=== PATIENT | male | born 1960 | race African-American/Black ===

== ENCOUNTER 2021-07-16 14:45 | Emergency (ER) | payer OTHER, MEDICARE ==
[~2021-07-16] VITALS: Ht 182.9 cm; Wt 81.0 kg
[2021-07-16 15:46] LABS: BASOPHILS % 0.5 % (0.0-2.0); EOSINOPHILS % 0.1 % (0.0-5.0); HEMATOCRIT. 43.1 % (42.0-52.0); HEMOGLOBIN. 14.4 g/dL (14.0-18.0); LYMPHOCYTES % 23.5 % (20.0-50.0); MEAN CORPUSCULAR HEMOGLOBIN 26.1 pg (28.0-32.0); MEAN CORPUSCULAR VOLUME 78.2 fL (80.0-94.0); MEAN PLATELET VOLUME 8.5 fl (7.4-10.4); MONOCYTES % 9.1 % (2.0-8.0); NEUTROPHILS % 66.8 % (40.0-76.0); PLATELET 331 x1000/uL (130-400); RED BLOOD CELL COUNT 5.52 mill/uL (4.7-6.1); RED CELL DISTRIBUTION WIDTH 15.7 % (11.6-14.6)
[2021-07-16 15:47] LABS: CHLORIDE 107 mEq/L (98-107)
[2021-07-16 18:20] VITALS: BP 134/91
== END 2021-07-16 20:13 | disposition home or self-care (01) ==
LOC: ER 15:55
DX: R00.2 Palpitations (principal); I48.91 Unspecified atrial fibrillation; I10 Essential (primary) hypertension; E11.9 Type 2 diabetes mellitus without complications; Z79.01 Long term (current) use of anticoagulants; Z79.899 Other long term (current) drug therapy
CPT/HCPCS: 36415; 71045; 80053; 83880; 84484; 85025; 93005; 99285

== ENCOUNTER 2021-07-21 23:59 | Emergency (ER) | payer MEDICARE, OTHER ==
[~2021-07-21] VITALS: Ht 177.8 cm; Wt 70.0 kg
[2021-07-22] MEDS ORDERED: IBUPROFEN 600MG TABLET PO STA (00:03)
[2021-07-22 00:20] VITALS: BP 124/92
== END 2021-07-22 00:57 | disposition left against medical advice (07) ==
LOC: ER 23:59
DX: R07.89 Other chest pain (principal); E11.9 Type 2 diabetes mellitus without complications; I10 Essential (primary) hypertension; I48.91 Unspecified atrial fibrillation
CPT/HCPCS: 93005; 99283

== ENCOUNTER 2021-08-06 10:05 | Inpatient (IN) | payer OTHER, MEDICARE ==
[~2021-08-06] VITALS: Ht 193 cm; Wt 102.2 kg
[2021-08-06 11:37] LABS: BASOPHILS % 0.6 % (0.0-2.0); EOSINOPHILS % 0.9 % (0.0-5.0); HEMATOCRIT. 30.7 % (42.0-52.0); HEMOGLOBIN. 10.3 g/dL (14.0-18.0); MEAN CORPUSCULAR HEMOGLOBIN 26.1 pg (28.0-32.0); MEAN CORPUSCULAR VOLUME 78.1 fL (80.0-94.0); MONOCYTES % 10.9 % (2.0-8.0); NEUTROPHILS % 69.6 % (40.0-76.0); PLATELET 404 x1000/uL (130-400); RED BLOOD CELL COUNT 3.93 mill/uL (4.7-6.1); RED CELL DISTRIBUTION WIDTH 16.4 % (11.6-14.6)
[2021-08-06 11:49] LABS: CHLORIDE 105 mEq/L (98-107)
[2021-08-06 12:01] LABS: ETHANOL BLOOD < 10 mg/dL
[2021-08-06 12:07] LABS: PROTHROMBIN TIME 10.5 sec (9.6-11.0)
[2021-08-06 12:18] LABS: CLARITY URINE CLEAR (CLEAR); COLOR URINE YELLOW (YELLOW); KETONES URINE NEGATIVE (NEGATIVE); LEUKOCYTE ESTERASE URINE TRACE (NEGATIVE); NITRITE URINE NEGATIVE (NEGATIVE); OCCULT BLOOD URINE NEGATIVE (NEGATIVE); PROTEIN URINE NEGATIVE (NEGATIVE); SPECIFIC GRAVITY URINE 1.013 (1.005-1.030); UROBILINOGEN URINE 0.2 E.U./dL (0.2-1.0)
[2021-08-06 12:29] LABS: *AMPHETAMINES SCREEN URINE NEGATIVE (NEGATIVE); *BARBITURATES SCREEN URINE NEGATIVE (NEGATIVE); *BENZODIAZEPINES SCREEN URINE NEGATIVE (NEGATIVE); *COCAINE SCREEN URINE NEGATIVE (NEGATIVE); CANNABINOID URINE SCREEN NEGATIVE (NEGATIVE); METHADONE URINE SCREEN NEGATIVE (NEGATIVE); OPIATES URINE SCREEN NEGATIVE (NEGATIVE); PHENCYCLIDINE URINE SCREEN NEGATIVE (NEGATIVE)
[2021-08-06] MEDS ORDERED: ONDANSETRON HCL 4MG/2ML INJ IV PRN (16:00)
[2021-08-06] MEDS ORDERED: ACETAMINOPHEN 325MG TABLET PO PRN (16:00)
[2021-08-06] MEDS ORDERED: MAGNESIUM/ALUMINUM HYDROXIDE/SIMETHICONE 30ML UDC PO PRN (16:00)
[2021-08-06] MEDS ORDERED: CLONIDINE 0.1MG TABLET PO PRN (16:00)
[2021-08-06] MEDS ORDERED: IPRATROPIUM/ALBUTEROL 0.5-3(2.5)MG/3ML NEB NEB PRN (16:00)
[2021-08-06] MEDS ORDERED: DOCUSATE SODIUM 100MG CAPSULE PO PRN (16:00)
[2021-08-06] MEDS ORDERED: GUAIFENESIN 200MG/10ML SUGAR FREE UDC PO PRN (16:00)
[2021-08-06] MEDS: DEXT 5%/LACTATED RINGERS 1,000 ML IV SCH (16:10)
[2021-08-06 16:11] LABS: TOTAL IRON BINDING CAPACITY 175 ug/dL (250-450)
[2021-08-06] MEDS ORDERED: PANTOPRAZOLE 80 MG in SODIUM CHLORIDE 0.9% 100 ML IV SCH ×4 (17:00)
[2021-08-06] MEDS: ACETAMINOPHEN 325MG TABLET PO PRN ×2 (17:38→22:28)
[2021-08-06 17:41] LABS: FOLIC ACID (FOLATE) SERUM 9.6 ng/mL (>5.38)
[2021-08-06 19:05] VITALS: BP 145/90
[2021-08-06 20:00] VITALS: BP 112/67
[2021-08-06] MEDS: PANTOPRAZOLE SODIUM 40 MG/VIAL IV SCH (22:27)
[2021-08-06 22:58] VITALS: BP 112/67
[2021-08-06] MEDS: ZOLPIDEM TARTRATE 5MG TABLET PO PRN (23:23)
[2021-08-07] VITALS: BP 131/71
[2021-08-07] MEDS ORDERED: LOPHC2 PO (01:00)
[2021-08-07] MEDS: ACETAMINOPHEN 325MG TABLET PO PRN ×2 (03:52→21:10)
[2021-08-07 04:00] VITALS: BP 133/83
[2021-08-07 04:00] LABS: HEMATOCRIT 30.3 % (42.0-52.0); HEMOGLOBIN 10.1 g/dL (14.0-18.0)
[2021-08-07] MEDS: DEXT 5%/LACTATED RINGERS 1,000 ML IV SCH (06:00)
[2021-08-07 07:33] LABS: HEMOGLOBIN. 10.2 g/dL (14.0-18.0); MEAN CORPUSCULAR HEMOGLOBIN 26.2 pg (28.0-32.0); MEAN CORPUSCULAR VOLUME 77.1 fL (80.0-94.0); MEAN PLATELET VOLUME 6.8 fl (7.4-10.4); PLATELET 361 x1000/uL (130-400); RED CELL DISTRIBUTION WIDTH 16.8 % (11.6-14.6)
[2021-08-07 07:55] LABS: CHLORIDE 103 mEq/L (98-107)
[2021-08-07 08:00] VITALS: BP 125/80
[2021-08-07] MEDS: PANTOPRAZOLE SODIUM 40 MG/VIAL IV SCH ×2 (10:00→21:08)
[2021-08-07 12:00] VITALS: BP 132/84
[2021-08-07 12:14] LABS: HEMATOCRIT 30.9 % (42.0-52.0); HEMOGLOBIN 10.3 g/dL (14.0-18.0)
[2021-08-07 13:49] LABS: PLATELET ESTIMATE NORMAL
[2021-08-07 16:00] VITALS: BP 128/82
[2021-08-07 19:12] LABS: HEMATOCRIT 32.3 % (42.0-52.0); HEMOGLOBIN 10.7 g/dL (14.0-18.0)
[2021-08-07 20:00] VITALS: BP 137/75
[2021-08-07] MEDS: ZOLPIDEM TARTRATE 5MG TABLET PO PRN (21:08)
[2021-08-08] VITALS: BP 135/72
[2021-08-08 01:30] LABS: HEMATOCRIT 30.8 % (42.0-52.0); HEMOGLOBIN 10.4 g/dL (14.0-18.0)
[2021-08-08 04:00] VITALS: BP 126/79
[2021-08-08] MEDS: ACETAMINOPHEN 325MG TABLET PO PRN ×3 (06:33→21:32)
[2021-08-08 07:48] LABS: HEMATOCRIT 31.9 % (42.0-52.0); HEMOGLOBIN 10.9 g/dL (14.0-18.0)
[2021-08-08 08:00] VITALS: BP 122/78
[2021-08-08] MEDS: DEXT 5%/LACTATED RINGERS 1,000 ML IV SCH ×2 (09:01→21:32)
[2021-08-08] MEDS: PANTOPRAZOLE SODIUM 40 MG/VIAL IV SCH ×2 (10:37→21:31)
[2021-08-08 11:33] VITALS: BP 139/86
[2021-08-08 13:09] LABS: HEMATOCRIT 33.7 % (42.0-52.0); HEMOGLOBIN 11.3 g/dL (14.0-18.0)
[2021-08-08 15:41] VITALS: BP 114/85
[2021-08-08 20:00] VITALS: BP 116/61
[2021-08-08] MEDS: ZOLPIDEM TARTRATE 5MG TABLET PO PRN (21:32)
[2021-08-09] VITALS: BP 120/74
[2021-08-09] MEDS: ACETAMINOPHEN 325MG TABLET PO PRN ×3 (03:58→20:55)
[2021-08-09 04:00] VITALS: BP 117/86
[2021-08-09 08:00] VITALS: BP 130/74
[2021-08-09] MEDS: PANTOPRAZOLE SODIUM 40 MG/VIAL IV SCH ×2 (09:45→20:55)
[2021-08-09] MEDS: DEXT 5%/LACTATED RINGERS 1,000 ML IV SCH ×2 (09:45→20:43)
[2021-08-09 12:00] VITALS: BP 147/91
[2021-08-09 15:44] VITALS: BP 132/82
[2021-08-09 20:00] VITALS: BP 132/89
[2021-08-09] MEDS: ZOLPIDEM TARTRATE 5MG TABLET PO PRN (20:56)
[2021-08-10] VITALS: BP 133/76
[2021-08-10] MEDS: ACETAMINOPHEN 325MG TABLET PO PRN ×3 (01:58→20:06)
[2021-08-10] MEDS: NITROGLYCERIN 0.4MG TABLET SL SL PRN ×2 (03:56→09:24)
[2021-08-10 04:00] VITALS: BP 119/71
[2021-08-10 08:00] VITALS: BP 129/79
[2021-08-10] MEDS: PANTOPRAZOLE SODIUM 40 MG/VIAL IV SCH ×2 (09:24→20:15)
[2021-08-10 10:30] LABS: PROTHROMBIN TIME 11.1 sec (9.6-11.0)
[2021-08-10 12:00] VITALS: BP 121/81
[2021-08-10] MEDS: DEXT 5%/LACTATED RINGERS 1,000 ML IV SCH ×2 (12:46→20:20)
[2021-08-10] MEDS ORDERED: DIATR MEGLU/DIATRIZOATE SOLN 30ML PO SCH (13:00)
[2021-08-10 16:00] VITALS: BP 142/82
[2021-08-10 16:58] LABS: BASOPHILS % 1.1 % (0.0-2.0); HEMATOCRIT. 36.3 % (42.0-52.0); HEMOGLOBIN. 12.3 g/dL (14.0-18.0); LYMPHOCYTES % 31.4 % (20.0-50.0); MEAN CORPUSCULAR HEMOGLOBIN 26.2 pg (28.0-32.0); MEAN CORPUSCULAR VOLUME 77.3 fL (80.0-94.0); MEAN PLATELET VOLUME 7.2 fl (7.4-10.4); MONOCYTES % 12.4 % (2.0-8.0); NEUTROPHILS % 54.1 % (40.0-76.0); PLATELET 450 x1000/uL (130-400); RED BLOOD CELL COUNT 4.69 mill/uL (4.7-6.1); RED CELL DISTRIBUTION WIDTH 16.6 % (11.6-14.6)
[2021-08-10 17:14] LABS: CHLORIDE 101 mEq/L (98-107)
[2021-08-10 20:00] VITALS: BP 111/59
[2021-08-10] MEDS: ZOLPIDEM TARTRATE 5MG TABLET PO PRN (22:07)
[2021-08-11] VITALS: BP 135/60
[2021-08-11 04:00] VITALS: BP 120/65
[2021-08-11] MEDS ORDERED: DIATR MEGLU/DIATRIZOATE SOLN 30ML PO NR (06:15)
[2021-08-11 07:14] LABS: HEMATOCRIT. 34.3 % (42.0-52.0); HEMOGLOBIN. 11.6 g/dL (14.0-18.0); MEAN CORPUSCULAR HEMOGLOBIN 26.2 pg (28.0-32.0); MEAN CORPUSCULAR VOLUME 77.2 fL (80.0-94.0); MEAN PLATELET VOLUME 7.2 fl (7.4-10.4); PLATELET 397 x1000/uL (130-400); RED BLOOD CELL COUNT 4.44 mill/uL (4.7-6.1); RED CELL DISTRIBUTION WIDTH 16.6 % (11.6-14.6)
[2021-08-11 07:37] LABS: CHLORIDE 104 mEq/L (98-107)
[2021-08-11 08:00] VITALS: BP 132/75
[2021-08-11] MEDS: PANTOPRAZOLE SODIUM 40 MG/VIAL IV SCH (09:24)
[2021-08-11] MEDS: ACETAMINOPHEN 325MG TABLET PO PRN (09:41)
[2021-08-11 10:46] LABS: PLATELET ESTIMATE NORMAL
[2021-08-11 12:00] VITALS: BP 122/71
[2021-08-11 14:07] VITALS: BP 122/72
[2021-08-11] MEDS: DEXT 5%/LACTATED RINGERS 1,000 ML IV SCH (15:25)
[2021-08-11 15:40] VITALS: BP 122/72
== END 2021-08-11 18:10 | disposition home or self-care (01) | DRG 378 ==
LOC: ER 10:05 → 8WST 14:59 → ENRESERV 18:16
PROVIDERS: ADMIT Internal Medicine; ATTEND Internal Medicine
DX: K92.1 Melena (principal); D62 Acute posthemorrhagic anemia; E44.0 Moderate protein-calorie malnutrition; R07.89 Other chest pain; I10 Essential (primary) hypertension; E83.51 Hypocalcemia; E11.9 Type 2 diabetes mellitus without complications; I48.91 Unspecified atrial fibrillation; D50.9 Iron deficiency anemia, unspecified; F31.9 Bipolar disorder, unspecified; I87.8 Other specified disorders of veins; Z68.27 Body mass index [BMI] 27.0-27.9, adult
CPT/HCPCS: 36415; 71045; 74176; 80048; 80053; 80305; 80320; 81003; 82270; 82607; 82728; 82746; 83036; 83540; 83550; 83735; 83880; 84100; 84439; 84443; 84484; 85014; 85018; 85025; 85044; 86850; 86900; 93005; 93970; 97161; 97166; 97535; 99285; C9113; J7050; Q9963; G0480